=== PATIENT | female | born 1970 | race Caucasian/White ===

== ENCOUNTER 2019-04-10 10:41 | Emergency (ER) | payer SELFPAY ==
[2019-04-10] MEDS ORDERED: ADENOSINE INJ/PF 6 MG/2 ML SDV IV ONE ×3 (10:54→10:55)
[2019-04-10] MEDS ORDERED: LORAZEPAM INJ 2 MG/1 ML VIAL ONE (11:02)
[2019-04-10] MEDS ORDERED: NORMAL SALINE 1000 ML 1,000 ML IV ONE (11:06)
--- NOTE | 2019-04-10 11:09 | ER Document Report ---
ED Cardiac - General Chief Complaint: Chest Pain > 30 Stated Complaint: CHEST PAIN Time Seen by Provider: 04/10/19 10:52 - HPI Notes: Patient is a 48-year-old female who presents emergency department for evaluation of chest tightness and the sensation that her heart is racing. It started a few hours ago. She states she has a history of SVT. She states that she was on a medication for prevention, but she ran out of it approximately a year ago. She states that over the course of this year she is tried vagal maneuvers to try and help this and has been successful. She states she feels a chest tightness that she rates a 1 out of 10. She feels short of breath, and states she is starting to have a "panic attack." She denies excessive caffeine, states she does not drink coffee, only has 1 can of pop daily. - Related Data Allergies/Adverse Reactions: No Known Allergies Allergy (Verified 04/10/19 12:03) Past Medical History - General Information source: Patient - Social History Smoking Status: Current Every Day Smoker Drug Abuse: None Family History: Reviewed & Not Pertinent - Past Medical History Cardiac Medical History: Reports: Other - SVT Review of Systems - Review of Systems Constitutional: No symptoms reported EENT: No symptoms reported Cardiovascular: See HPI Respiratory: No symptoms reported Gastrointestinal: No symptoms reported Genitourinary: No symptoms reported Musculoskeletal: No symptoms reported Skin: No symptoms reported Neurological/Psychological: No symptoms reported Physical Exam - Vital signs Vitals: Resp 25 H 04/10/19 10:54 - Notes Notes: Is a very pleasant but anxious appearing 48-year-old female who appears her stated age and amount of moderate distress. Vital signs reviewed, please refer to chart. Head is tachycardic with normal S1-S2. Pupils equal round, reactive to light. Neck is supple without meningismus. Heart is regular rate and rhythm. Lungs are clear to auscultation bilaterally. Abdomen is soft, nontender, normoactive bowel sounds throughout. Extremities without cyanosis, clubbing. Posterior calves are nontender. Peripheral pulses are equal. Skin is warm and dry. Patient is awake, alert, neurological exam is nonfocal. Course - Re-evaluation Re-evalutation: 04/10/19 11:08 Presents emergency department for evaluation. On arrival her heart rate is found to be in the 240s. She was placed in a classroom monitor, and crushed heart was brought into the room. She was administered adenosine 6 mg, followed by 12 mg, and then converted to sinus mechanism. She remains mildly tachycardic with a heart rate around 112. She is administered Ativan at her request because of a panic attack. She is given IV fluids. Laboratory investigations are ordered and pending at this time, we will continue to monitor. 04/10/19 14:26 Patient remained in sinus rhythm throughout the course of her stay here in the emergency department after conversion. Currently her heart rate is 91. She had been on metoprolol in the past, did not get it refilled when her insurance lap sed. I will write her a new prescription for that. We discussed the fact that her blood sugar was moderately elevated here. She has no known history of diabetes, but admits she is not seeing a doctor regularly. Certainly she might have some reactive hyperglycemia secondary to stress response given her heart rate of 240. We discussed food choices, weight loss. We discussed the need for further evaluation of this elevated blood sugar, and the importance of close follow-up. [facility] I will give her instructions on diabetes, as she is unsure as to what sort of dietary changes are most appropriate. We did discuss this at length here in the ED. She is to return to the ED with worsening or new concerning symptoms of any sort. - Vital Signs Vital signs: Temp Pulse Resp BP Pulse Ox 98.5 F 22 H 133/93 H 95 04/10/19 12:52 04/10/19 13:45 04/10/19 13:45 04/10/19 13:44 - Laboratory Result Diagrams: 04/10/19 10:54 04/10/19 10:54 Laboratory results interpreted by me: 04/10/19 04/10/19 10:54 10:54 WBC 10.8 H RDW 14.3 H Sodium 136.6 L Carbon Dioxide 18 L Glucose 276 H AST 212 H - Diagnostic Test Radiology reviewed: Reports reviewed Radiology results interpreted by me: 04/10/19 14:27 Chest X-Ray 04/10/19 11:06 IMPRESSION: Cardiomegaly without a superimposed acute cardiopulmonary process. - EKG Interpretation by Me Additional EKG results interpreted by me: 04/10/19 11:09 First EKG reveals SVT with a rate of 240 bpm. Normal axis, short MN interval. Nonspecific ST changes, likely rate related. No acute ST elevation. 04/10/19 14:27 Repeat EKG revealed sinus tachycardia with rate of 111 bpm. Normal axis and intervals, nonspecific ST changes, but no acute changes concerning for ischemia or infarction. Critical Care Note - Critical Care Note Total time excluding time spent on procedures (mins): 20 Discharge - Discharge Clinical Impression: Supraventricular tachycardia, Hyperglycemia Condition: Stable Disposition: HOME, SELF-CARE Instructions: Hyperglycemia ([facility]), Paroxysmal Supraventricular Tachycardia ([facility]) Additional Instructions: Your blood sugar was elevated here today. Please watch your intake of simple carbohydrates as discussed. Increase hydration. Follow-up with primary care in regards to this, you need further testing to find out whether or not you have reached diabetic levels. Your heart rate was well controlled here, and your blood work failed to show any signs of significant abnormality regarding her heart. Restart the metoprolol as prescribed. [facility]. If you develop worsening or new concerning symptoms of any sort, return immediately to the emergency department for evaluation.
[2019-04-10 11:19] LABS: ABSOLUTE BASOPHILS # (AUTO) 0.1 10^3/uL (0.0-0.2); ABSOLUTE EOSINOPHILS # (AUTO) 0.2 10^3/uL (0.0-0.6); ABSOLUTE LYMPHOCYTES (AUTO) 2.4 10^3/uL (0.5-4.7); ABSOLUTE MONOCYTES (AUTO) 0.8 10^3/uL (0.1-1.4); ABSOLUTE NEUT (AUTO) 7.3 10^3/uL (1.7-8.2); BASOPHILS % (AUTO) 0.9 % (0-2); EOSINOPHILS % (AUTO) 1.7 % (0-6); HEMOGLOBIN 15.5 g/dL (12.0-15.5); MEAN CORPUSCULAR HEMOGLOBIN 32.2 pg (27.0-33.4); MEAN CORPUSCULAR HGB CONC 33.8 g/dL (32.0-36.0); MEAN CORPUSCULAR VOLUME 95 fl (80-97); MONOCYTES % (AUTO) 7.7 % (3-13); PLATELET COUNT 343 10^3/uL (150-450); RED BLOOD COUNT 4.83 10^6/uL (3.72-5.28); RED CELL DISTRIBUTION WIDTH 14.3 % (11.5-14.0); SEGMENTED NEUTROPHILS % (AUTO) 67.7 % (42-78); TOTAL CELLS COUNTED % (AUTO) 100 %; WHITE BLOOD COUNT 10.8 10^3/uL (4.0-10.5)
[2019-04-10 11:41] LABS: ALBUMIN 4.7 g/dL (3.5-5.0); ALKALINE PHOSPHATASE 110 U/L (38-126); ANION GAP 18 (5-19); ASPARTATE AMINO TRANSFERASE 212 U/L (14-36); BILIRUBIN,DIRECT 0.3 mg/dL (0.0-0.4); BILIRUBIN,TOTAL 0.8 mg/dL (0.2-1.3); BLOOD UREA NITROGEN 10 mg/dL (7-20); CALCIUM 9.3 mg/dL (8.4-10.2); CARBON DIOXIDE 18 mmol/L (22-30); CHLORIDE 101 mmol/L (98-107); CREATINE KINASE 68 U/L (30-135); GLUCOSE 276 mg/dL (75-110); TOTAL PROTEIN 8.1 g/dL (6.3-8.2)
[2019-04-10 11:42] LABS: POTASSIUM 3.6 mmol/L (3.6-5.0)
--- NOTE | 2019-04-10 12:00 | RADIOLOGY REPORT (SQ) ---
EXAM DESCRIPTION: CHEST SINGLE VIEW COMPLETED DATE/TIME: 04/10/2019 11:46 am REASON FOR STUDY: SVT COMPARISON: None. EXAM PARAMETERS: NUMBER OF VIEWS: One view. TECHNIQUE: Single frontal radiographic view of the chest acquired. RADIATION DOSE: NA LIMITATIONS: None. FINDINGS: LUNGS AND PLEURA: No consolidation, pleural effusion or pneumothorax. MEDIASTINUM AND HILAR STRUCTURES: No mediastinal or hilar contour abnormality. HEART AND VASCULAR STRUCTURES: Cardiomegaly. The pulmonary vasculature is within normal limits. BONES: No acute findings. HARDWARE: None in the chest. OTHER: No other finding. IMPRESSION: Cardiomegaly without a superimposed acute cardiopulmonary process. TECHNICAL DOCUMENTATION: JOB ID: [id number] [email or web address]- All Rights Reserved Reading location - IP/workstation name: [email or web address]
[2019-04-10 15:05] VITALS: BP 157/101
--- NOTE | 2019-04-10 19:12 | EKG REPORT ---
SEVERITY:- ABNORMAL ECG - SINUS TACHYCARDIA NONSPECIFIC ST-T CHANGES : Confirmed by: Mallika King MD 10-Apr-2019 19:11:29
--- NOTE | 2019-04-10 19:12 | EKG REPORT ---
SEVERITY:- ABNORMAL ECG - SUPRAVENTRICULAR TACHYCARDIA MULTIFORM VENTRICULAR PREMATURE COMPLEXES ABERRANT COMPLEX REPOLARIZATION ABNORMALITY, PROB RATE RELATED : Confirmed by: Mallika King MD 10-Apr-2019 19:11:43
== END 2019-04-10 15:14 | disposition home or self-care (01) ==
LOC: ER 10:41
DX: I47.1 Supraventricular tachycardia (principal); R73.9 Hyperglycemia, unspecified; I51.7 Cardiomegaly; F41.0 Panic disorder [episodic paroxysmal anxiety]; R07.89 Other chest pain; R06.02 Shortness of breath; F17.200 Nicotine dependence, unspecified, uncomplicated
CPT/HCPCS: 93005; 99285; 96361; 96374; 96375; 36415; 82553; 82550; 85025; 80053; 84484; 71045; 93010; J2060; J7030; J0153

== ENCOUNTER 2020-02-05 21:08 | Emergency (ER) | payer SELFPAY ==
[2020-02-05] MEDS ORDERED: ADENOSINE INJ/PF 6 MG/2 ML SDV IV ONE ×2 (21:27→22:09)
--- NOTE | 2020-02-05 22:12 | ER Document Report ---
ED Cardiac - General Chief Complaint: Irregular Pulse Stated Complaint: ARRYTHMIA Notes: 49-year-old woman presents to the emergency department with a complaint of rapid heartbeat. She has a history of supraventricular tachycardia. EKG performed in the emergency department shows a supraventricular tachycardia with a rate of 232. Patient denies chest pain does feel her heart racing and "pounding". Patient states that the symptoms began at approximately 2000-hour, she was drinking ice water when it began. Has had 3 prior episodes of SVT. TRAVEL OUTSIDE OF THE [place] IN LAST 30 DAYS: No - Related Data Allergies/Adverse Reactions: No Known Allergies Allergy (Verified 04/10/19 12:03) Past Medical History - Social History Smoking Status: Current Every Day Smoker Chew tobacco use (# tins/day): No Frequency of alcohol use: Social Drug Abuse: None Family History: Reviewed & Not Pertinent Review of Systems - Review of Systems Notes: Constitutional: Negative for fever. HENT: Negative for sore throat. Eyes: Negative for visual changes. Cardiovascular: + Tachyarrhythmia Respiratory: Negative for shortness of breath. Gastrointestinal: Negative for abdominal pain, vomiting or diarrhea. Genitourinary: Negative for dysuria. Musculoskeletal: Negative for back pain. Skin: Negative for rash. Neurological: + Anxiety, negative for headaches, weakness or numbness. 10 point ROS negative except as marked above and in HPI. Physical Exam - Vital signs Vitals: Pulse Ox 97 02/05/20 21:20 - Notes Notes: PHYSICAL EXAMINATION: Physical Exam: General: Well-nourished well-developed 49-year-old woman mild distress secondary to anxiety. HEENT: NC/AT, pupils equal round and reactive to light, MM moist,nares clear, oropharynx clear, airway patent Neck: supple, no adenopathy, no masses. Good range of motion Lungs: clear, no wheezing, no rales no rhonchi CVS: Tachyarrhythmia and rhythm no murmur gallop or rub Abdomen: Soft, active, nontender, no masses, no hepatosplenomegaly Ext: No edema, clubbing or cyanosis. Neuro: Alert and responsive, moving all 4 extremities on command, cranial nerves intact, no focal findings Skin: Intact no open lesions, no rash Course - Re-evaluation Re-evalutation: 02/05/20 22:12 Patient was placed in a flat position on the bed and given adenosine 6 mg IV push normal saline flush, there was a change of rhythm with a slowing of the R to R intervals and then a conversion to sinus rhythm. Patient tolerated procedure consequence. She denies chest pain shortness of breath associated complication. 02/06/20 00:05 Patient is reassessed 98-100 range. She is asymptomatic. Patient notes that she is run out of the metoprolol which she had been prescribed, her last prescription was written when she was seen in the emergency department at [facility]. She is taking metoprolol tartrate 25 mg twice daily. - Vital Signs Vital signs: Temp Pulse Resp BP Pulse Ox 98.5 F 176/113 H 96 02/05/20 21:41 02/05/20 21:46 02/05/20 21:46 - Laboratory Result Diagrams: 02/05/20 21:20 02/05/20 21:20 Laboratory results interpreted by me: 02/05/20 02/05/20 21:20 21:20 WBC 11.7 H Hgb 16.7 H Hct 47.9 H MCH 33.6 H RDW 14.1 H Sodium 136.6 L Chloride 96 L Glucose 222 H AST 194 H ALT 153 H Total Protein 8.4 H - EKG Interpretation by Me Rhythm: SVT - Rate of 232 bpm, repolarization abnormalities noted. Rate related changes. No acute ST or T wave abnormalities suggesting ischemic disease. Interpretation: Supraventricular tachycardia. Discharge - Discharge Clinical Impression: Supraventricular tachycardia Condition: Good Disposition: HOME, SELF-CARE Instructions: Paroxysmal Supraventricular Tachycardia ([facility]) Additional Instructions: You were seen in the emergency department tonight with an episode of supraventricular tachycardia, the episode was controlled with medication your lab studies and repeat EKG are normal. A prescription for metoprolol, the medication which you were taking before was given. Please take this medication as prescribed. Please follow-up with your primary care doctor for long-term management. If you have further difficulties or other concerns you may return to the emergency department for further treatment. HOME CARE INSTRUCTIONS & INFORMATION: Thank you for choosing us for your medic al needs. We hope you're satisfied with the care you received. After you leave, you must properly care for your problem and, at the same time, observe its progress. Any condition can change. Some illnesses can change rapidly over hours or days. If your condition worsens, return to the Emergency Department or see your physician promptly. ABOUT YOUR X-RAYS AND EKG'S: If you had an EKG or X-rays taken, they have been read by the Emergency Physician. The X-rays and EKG's will also be read by a Radiologist or Advertising Operations Manager within 24 hours. If discrepancies are noted, you will be notified by telephone. Please be certain the ED has a correct telephone number & address where you can be reached. Also, realize that some fractures or abnormalities do not show up on initial X-rays. If your symptoms continue, see your physician. ABOUT YOUR LABORATORY TEST: If you had laboratory tests, the results have been reviewed by the Emergency Physician. Some test results (for example cultures) m ay not be available for several days. You will be contacted if any test result shows you need additional treatment. Please be certain the ED has a correct telephone number and address where you can be reached. ABOUT YOUR MEDICATIONS: You will receive instructions on how to take your medicine on the prescription label you receive. Additional information may be provided by the Pharmacy. If you have questions afterwards, call the ED for clarification or further instructions. Some prescribed medications may cause drowsiness. Do not perform tasks such as driving a car or operating machinery without consulting your Pharmacist. If you feel you need a refill of pain medication, your condition will need re-evaluation. Please do not call for a refill of any medication. ABOUT YOUR SIGNATURE: Signature of this document acknowledges to followin. Understanding that you received emergency treatment and that you may be released before al medical problems are known or treated. Please be certain the ED has a correct phone number & address where you can be reached. 2. Acknowledgement that you will arrange for follow-up care as recommended. 3. Authorization for the Emergency Physician to provide information to your follow-up Physician in order to maximize your care. AT ANY TIME, IF YOUR SYMPTOMS CHANGE SIGNIFICANTLY OR WORSEN OR YOU DEVELOP NEW SYMPTOMS, RETURN TO THE EMERGENCY DEPARTMENT IMMEDIATELY FOR RE-EVALUATION. OUR GOAL IS TO PROVIDE EXCELLENT MEDICAL CARE! WE HOPE THAT WE HAVE MET YOUR EXPECTATIONS DURING YOUR EMERGENCY DEPARTMENT VISIT AND THAT YOU FEEL YOU HAVE RECEIVED EXCELLENT CARE! Prescriptions: Metoprolol Tartrate [Lopressor 25 mg Tablet] 25 mg PO BID #60 tab
[2020-02-05 22:29] LABS: ABSOLUTE BASOPHILS # (AUTO) 0.1 10^3/uL (0.0-0.2); ABSOLUTE EOSINOPHILS # (AUTO) 0.2 10^3/uL (0.0-0.6); ABSOLUTE LYMPHOCYTES (AUTO) 3.2 10^3/uL (0.5-4.7); ABSOLUTE MONOCYTES (AUTO) 0.9 10^3/uL (0.1-1.4); ABSOLUTE NEUT (AUTO) 7.3 10^3/uL (1.7-8.2); BASOPHILS % (AUTO) 1.2 % (0-2); EOSINOPHILS % (AUTO) 2.1 % (0-6); HEMATOCRIT 47.9 % (36.0-47.0); HEMOGLOBIN 16.7 g/dL (12.0-15.5); LYMPHOCYTES % (AUTO) 27.2 % (13-45); MEAN CORPUSCULAR HEMOGLOBIN 33.6 pg (27.0-33.4); MEAN CORPUSCULAR HGB CONC 34.8 g/dL (32.0-36.0); MEAN CORPUSCULAR VOLUME 97 fl (80-97); MONOCYTES % (AUTO) 7.5 % (3-13); PLATELET COUNT 306 10^3/uL (150-450); RED BLOOD COUNT 4.97 10^6/uL (3.72-5.28); RED CELL DISTRIBUTION WIDTH 14.1 % (11.5-14.0); TOTAL CELLS COUNTED % (AUTO) 100 %; WHITE BLOOD COUNT 11.7 10^3/uL (4.0-10.5)
[2020-02-05 22:39] LABS: ALBUMIN 4.8 g/dL (3.5-5.0); ALKALINE PHOSPHATASE 112 U/L (38-126); ANION GAP 17 (5-19); ASPARTATE AMINO TRANSFERASE 194 U/L (14-36); BILIRUBIN,DIRECT 0.2 mg/dL (0.0-0.4); BILIRUBIN,TOTAL 0.7 mg/dL (0.2-1.3); BLOOD UREA NITROGEN 11 mg/dL (7-20); CALCIUM 9.8 mg/dL (8.4-10.2); CARBON DIOXIDE 24 mmol/L (22-30); CHLORIDE 96 mmol/L (98-107); GLUCOSE 222 mg/dL (75-110); POTASSIUM 3.6 mmol/L (3.6-5.0); TOTAL PROTEIN 8.4 g/dL (6.3-8.2)
[2020-02-05 22:54] LABS: TROPONIN I < 0.012 ng/mL
[2020-02-06 00:41] VITALS: BP 134/94
--- NOTE | 2020-02-06 14:13 | EKG REPORT ---
SEVERITY:- ABNORMAL ECG - SUPRAVENTRICULAR TACHYCARDIA REPOLARIZATION ABNORMALITY, PROB RATE RELATED : Confirmed by: Sam Lim 06-Feb-2020 14:12:36
== END 2020-02-06 00:41 | disposition home or self-care (01) ==
LOC: ER 21:08
DX: I47.1 Supraventricular tachycardia (principal); F17.200 Nicotine dependence, unspecified, uncomplicated; F41.9 Anxiety disorder, unspecified
CPT/HCPCS: 93005; 99284; 96374; 36415; 82553; 82550; 85025; 80053; 84484; 93010; J0153

== ENCOUNTER 2020-02-06 16:01 | Emergency (ER) | payer SELFPAY ==
[2020-02-06] MEDS ORDERED: ADENOSINE INJ/PF 6 MG/2 ML SDV IV ONE ×3 (16:15→16:25)
[2020-02-06] MEDS ORDERED: NORMAL SALINE 1000 ML 1,000 ML IV ONE (16:26)
[2020-02-06] MEDS ORDERED: LORAZEPAM INJ 2 MG/1 ML VIAL IV ONE (16:26)
[2020-02-06 16:36] LABS: ABSOLUTE BASOPHILS # (AUTO) 0.2 10^3/uL (0.0-0.2); ABSOLUTE EOSINOPHILS # (AUTO) 0.1 10^3/uL (0.0-0.6); ABSOLUTE LYMPHOCYTES (AUTO) 2.1 10^3/uL (0.5-4.7); ABSOLUTE MONOCYTES (AUTO) 0.7 10^3/uL (0.1-1.4); ABSOLUTE NEUT (AUTO) 10.1 10^3/uL (1.7-8.2); BASOPHILS % (AUTO) 1.2 % (0-2); EOSINOPHILS % (AUTO) 1.1 % (0-6); HEMATOCRIT 47.6 % (36.0-47.0); HEMOGLOBIN 16.3 g/dL (12.0-15.5); MEAN CORPUSCULAR HEMOGLOBIN 33.1 pg (27.0-33.4); MEAN CORPUSCULAR HGB CONC 34.3 g/dL (32.0-36.0); MEAN CORPUSCULAR VOLUME 97 fl (80-97); MONOCYTES % (AUTO) 5.5 % (3-13); PLATELET COUNT 314 10^3/uL (150-450); RED BLOOD COUNT 4.92 10^6/uL (3.72-5.28); RED CELL DISTRIBUTION WIDTH 14.3 % (11.5-14.0); SEGMENTED NEUTROPHILS % (AUTO) 76.2 % (42-78); TOTAL CELLS COUNTED % (AUTO) 100 %; WHITE BLOOD COUNT 13.2 10^3/uL (4.0-10.5)
--- NOTE | 2020-02-06 16:43 | ER Document Report ---
ED General - General Stated Complaint: SHORTNESS OF BREATH/FAST HEART RATE Time Seen by Provider: 02/06/20 16:05 TRAVEL OUTSIDE OF THE [place] IN LAST 30 DAYS: No - HPI Notes: Patient is a 49-year-old female with a history of SVT who presents to the emergency department for evaluation of SVT. She was actually seen here last night. She states she is had some intermittent chest pain, during the ride over here, and then shortly in the room. She states is gone now. She feels her heart racing. She also admits that she feels like her heart is going to pound out of her chest a few times a week. This been ongoing for the last 6 months. She denies any caffeine intake. She had been off her metoprolol for some time, got it filled after her visit last night. She took some at 3 AM. She tried vagal maneuvers, ice water, has not had any LOC. - Related Data Allergies/Adverse Reactions: No Known Allergies Allergy (Verified 04/10/19 12:03) Home Medications: Metoprolol Past Medical History - General Information source: Patient - Social History Smoking Status: Current Every Day Smoker Family History: Reviewed & Not Pertinent - Past Medical History Cardiac Medical History: Reports: Other - SVT Review of Systems - Review of Systems Constitutional: No symptoms reported EENT: No symptoms reported Cardiovascular: See HPI Respiratory: No symptoms reported Gastrointestinal: No symptoms reported Genitourinary: No symptoms reported Musculoskeletal: No symptoms reported Skin: No symptoms reported Neurological/Psychological: No symptoms reported Physical Exam - Vital signs Vitals: Resp 31 H 02/06/20 16:12 - Notes Notes: This is an anxious appearing 49-year-old female who appears her stated age in a mild amount of distress. Vital signs reviewed, please refer to chart. Head is normocephalic, atraumatic. Pupils equal round, reactive to light. Neck is supple without meningismus. Heart is markedly tachycardic. Lungs are clear to auscultation bilaterally. Abdomen is soft, nontender, normoactive bowel sounds throughout. Extremities without cyanosis, clubbing. Posterior calves are nontender. Peripheral pulses are equal. Skin is warm and dry. Patient is awake, alert, neurological exam is nonfocal. Course - Re-evaluation Re-evalutation: 02/06/20 16:42 Patient presents to the emergency department for evaluation. 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 IV fluids were hung. She was administered adenosine, 6 mg and 12 mg, which converted the patient into sinus rhythm. The patient was very tearful and anxious during this whole ordeal. She did ask for some anxiety medication. Ativan was ordered. Patient is back in sinus, she is currently stable, we will continue to monitor. 02/06/20 18:07 Patient remained in sinus rhythm. She is feeling improved after the Ativan. I discussed her elevated blood glucose with her. I explained how there are multiple etiologies for this, but she should consider evaluation by primary care for possible diabetes. We talked at length, and at this point the patient admitted to drinking multiple Dr. peppers a day. I explained to her that that was a large amount of caffeine, as well as sugar, and I strongly advise she cut down significantly on this intake. She voiced understanding. Otherwise she is to continue her metoprolol. Her thyroid studies were unremarkable. Her troponin was negative. She is to return to the ED with worsening or new concerning symptoms of any sort. - Vital Signs Vital signs: Temp Pulse Resp BP Pulse Ox 98.0 F 28 H 163/124 H 02/06/20 16:50 02/06/20 16:17 02/06/20 16:17 - Laboratory Result Diagrams: 02/06/20 16:18 02/06/20 16:18 Laboratory results interpreted by me: 02/06/20 02/06/20 16:18 16:18 WBC 13.2 H Hgb 16.3 H Hct 47.6 H RDW 14.3 H Absolute Neuts (auto) 10.1 H Glucose 206 H AST 175 H ALT 138 H - EKG Interpretation by Me Additional EKG results interpreted by me: 02/06/20 16:42 Initial EKG reveals SVT with a rate of 207 bpm. Normal axis and intervals. Near global ST depression concerning for ischemia, likely rate related. Repeat EKG shows sinus tachycardia with rate of 103 bpm. PVC noted. Borderline prolongation of the QT interval. Nonspecific changes, but no acute changes concerning for ischemia or infarction. Discharge - Discharge Clinical Impression: Hyperglycemia, Supraventricular tachycardia Condition: Stable Disposition: HOME, SELF-CARE Instructions: Paroxysmal Supraventricular Tachycardia ([facility]), Hyperglycemia ([facility]) Additional Instructions: Please cut down significantly on your soda intake. Your blood glucose was elevated here, this should be followed up with your primary care provider as well. Continue the metoprolol as you were previously prescribed. Return to the emergency department with worsening or new concerning symptoms of any sort.
[2020-02-06 16:53] LABS: ALBUMIN 4.6 g/dL (3.5-5.0); ALKALINE PHOSPHATASE 94 U/L (38-126); ANION GAP 16 (5-19); ASPARTATE AMINO TRANSFERASE 175 U/L (14-36); BILIRUBIN,DIRECT 0.3 mg/dL (0.0-0.4); BILIRUBIN,TOTAL 0.9 mg/dL (0.2-1.3); BLOOD UREA NITROGEN 16 mg/dL (7-20); CALCIUM 10.2 mg/dL (8.4-10.2); CARBON DIOXIDE 23 mmol/L (22-30); CHLORIDE 99 mmol/L (98-107); GLUCOSE 206 mg/dL (75-110); POTASSIUM 3.9 mmol/L (3.6-5.0); TOTAL PROTEIN 8.2 g/dL (6.3-8.2)
[2020-02-06 18:35] VITALS: BP 146/98
--- NOTE | 2020-02-07 20:27 | EKG REPORT ---
SEVERITY:- ABNORMAL ECG - SINUS TACHYCARDIA VENTRICULAR PREMATURE COMPLEX NONSPECIFIC T ABNORMALITIES, INFERIOR LEADS BORDERLINE PROLONGED QT INTERVAL : Confirmed by: Sam Lim 07-Feb-2020 20:27:15
--- NOTE | 2020-02-07 20:27 | EKG REPORT ---
SEVERITY:- ABNORMAL ECG - SUPRAVENTRICULAR TACHYCARDIA REPOLARIZATION ABNORMALITY, PROB RATE RELATED : Confirmed by: Sam Lim 07-Feb-2020 20:27:21
== END 2020-02-06 18:35 | disposition home or self-care (01) ==
LOC: ER 16:01
DX: I47.1 Supraventricular tachycardia (principal); R73.9 Hyperglycemia, unspecified; R06.02 Shortness of breath; Z79.899 Other long term (current) drug therapy; F17.200 Nicotine dependence, unspecified, uncomplicated; F41.9 Anxiety disorder, unspecified
CPT/HCPCS: 93005; 99284; 96361; 96374; 96375; 36415; 83735; 84443; 85025; 80053; 84484; 93010; J2060; J7030; J0153

== ENCOUNTER 2020-02-06 22:56 | Emergency (ER) | payer SELFPAY ==
[2020-02-06] MEDS ORDERED: ADENOSINE INJ/PF 6 MG/2 ML SDV IV ONE ×2 (23:06→23:08)
--- NOTE | 2020-02-06 23:33 | ER Document Report ---
ED Cardiac - General Chief Complaint: Arrhythmia Stated Complaint: HEART PALPATATIONS Mode of Arrival: Ambulatory Information source: Patient Notes: This 49-year-old woman presents to the emergency department with a history of known SVT. This is her third ER visit in the past 2 days with an SVT episode. Patient states that she had eaten dinner and was about to go to bed when she felt sudden increase of palpitations and discomfort in her chest. She tried some basic things at home including taken a dose of metoprolol without resolution. She has presented to the emergency department for further evaluation. She denies shortness of breath chest pain, dizziness or syncope. TRAVEL OUTSIDE OF THE [place] IN LAST 30 DAYS: No - Related Data Allergies/Adverse Reactions: No Known Allergies Allergy (Verified 04/10/19 12:03) Past Medical History - Social History Smoking Status: Current Every Day Smoker Chew tobacco use (# tins/day): No Frequency of alcohol use: Occasional Drug Abuse: None Family History: Reviewed & Not Pertinent Patient has homicidal ideation: No Review of Systems - Review of Systems Notes: Constitutional: Negative for fever. HENT: Negative for sore throat. Eyes: Negative for visual changes. Cardiovascular: + SVT, palpitations Respiratory: Negative for shortness of breath. Gastrointestinal: Negative for abdominal pain, vomiting or diarrhea. Genitourinary: Negative for dysuria. Musculoskeletal: Negative for back pain. Skin: Negative for rash. Neurological: Negative for headaches, weakness or numbness. 10 point ROS negative except as marked above and in HPI. Physical Exam - Vital signs Vitals: Temp 98.7 F 02/06/20 22:56 - Notes Notes: PHYSICAL EXAMINATION: Physical Exam: General: Well-nourished well-developed in no acute distress HEENT: NC/AT, pupils equal round and reactive to light, MM moist,nares clear, oropharynx clear, airway patent Neck: supple, no adenopathy, no masses. Good range of motion Lungs: clear, no wheezing, no rales no rhonchi CVS: + Tachycardia rate, nontender, no masses, no hepatosplenomegaly Ext: No edema, clubbing or cyanosis. Neuro: Alert and responsive, moving all 4 extremities on command, cranial nerves intact, no focal findings Skin: Intact no open lesions, no rash PSYCH: Normal mood, normal affect. oracle applications developer: Supraventricular tachycardia with a rate of 212. Course - Re-evaluation Re-evalutation: 02/06/20 23:26 Basic vagal maneuvers were attempted while getting an IV started. Patient did slow down to 198, but did not convert to sinus rhythm. She is given adenosine 6 mg IV and promptly converted to a sinus rhythm. She remains asymptomatic. 02/06/20 23:27 I discussed with the patient's that since she has had labs performed on 2 separate occasions in the last 24 hours that we will not repeat her labs and chest x-ray. She is scheduling appointment with clinic will be followed up as an outpatient. She has gotten the beta-sherice field at the pharmacy, we cannot declare it as a medication failure. Medication would be a calcium channel sherice. Being discharged home to continue the metoprolol 25 mg twice daily. - Vital Signs Vital signs: Temp Pulse Resp BP Pulse Ox 98.7 F 27 H 135/84 H 96 02/06/20 23:04 02/06/20 23:11 02/06/20 23:11 02/06/20 23:11 Discharge - Discharge Clinical Impression: Supraventricular tachycardia Condition: Good Disposition: HOME, SELF-CARE Instructions: Paroxysmal Supraventricular Tachycardia ([facility]) Additional Instructions: Please continue taking your metoprolol on a daily basis. Follow-up with outpatient physician regarding your blood sugar, if you are having further difficulties or concerns you may return to the emergency department for further evaluation and treatment. HOME CARE INSTRUCTIONS & INFORMATION: Thank you for choosing us for your medical needs. We hope you're satisfied with the care you received. After you leave, you must properly care for your problem and, at the same time, observe its progress. Any condition can change. Some illnesses can change rapidly over hours or days. If your condition worsens, return to the Emergency Department or see your physician promptly. ABOUT YOUR X-RAYS AND EKG'S: If you had an EKG or X-rays taken, they have been read by the Emergency Physician. The X-rays and EKG's will also be read by a Radiologist or Ladies Underwear Operator within 24 hours. If discrepancies are noted, you will be notified by telephone. Please be certain the ED has a correct telephone number & address where you can be reached. Also, realize that some fractures or abnormalities do not show up on initial X-rays. If your symptoms continue, see your physician. ABOUT YOUR LABORATORY TEST: If you had laboratory tests, the results have been reviewed by the Emergency Physician. Some test results (for example cultures) may not be available for several days. You will be contacted if any test result shows you need additional treatment. Please be certain the ED has a correct telephone number and address where you can be reached. ABOUT YOUR MEDICATIONS: You will receive instructions on how to take your medicine on the prescription label you receive. Additional information may be provided by the Pharmacy. If you have questions afterwards, call the ED for clarification or further instructions. Some prescribed medications may cause drowsiness. Do not perform tasks such as driving a car or operating machinery without consulting your Pharmacist. If you feel you need a refill of pain medication, your condition will need re-evaluation. Please do not call for a refill of any medication. ABOUT YOUR SIGNATURE: Signature of this document acknowledges to followin. Understanding that you received emergency treatment and that you may be released before al medical problems are known or treated. Please be certain the ED has a correct phone number & address where you can be reached. 2. Acknowledgement that you will arrange for follow-up care as recommended. 3. Authorization for the Emergency Physician to provide information to your follow-up Physician in order to maximize your care. AT ANY TIME, IF YOUR SYMPTOMS CHANGE SIGNIFICANTLY OR WORSEN OR YOU DEVELOP NEW SYMPTOMS, RETURN TO THE EMERGENCY DEPARTMENT IMMEDIATELY FOR RE-EVALUATION. OUR GOAL IS TO PROVIDE EXCELLENT MEDICAL CARE! WE HOPE THAT WE HAVE MET YOUR EXPECTATIONS DURING YOUR EMERGENCY DEPARTMENT VISIT AND THAT YOU FEEL YOU HAVE RECEIVED EXCELLENT CARE!
[2020-02-06 23:44] VITALS: BP 143/91
== END 2020-02-06 23:40 | disposition home or self-care (01) ==
LOC: ER 22:56
DX: I47.1 Supraventricular tachycardia (principal); R07.9 Chest pain, unspecified; F17.200 Nicotine dependence, unspecified, uncomplicated
CPT/HCPCS: 99284; 96374; J0153